=== PATIENT | female | born 1995 | race Two or more races ===

== ENCOUNTER 2022-01-09 14:55 | Emergency (ER) | payer OTHER ==
[~2022-01-09] VITALS: Ht 157.5 cm; Wt 72.6 kg
[2022-01-09] MEDS ORDERED: FOLIC ACID20 MG (15:48)
== END 2022-01-09 18:06 | disposition home or self-care (01) ==
LOC: ER 14:55
DX: O20.9 Hemorrhage in early pregnancy, unspecified (principal); Z3A.01 Less than 8 weeks gestation of pregnancy

== ENCOUNTER 2022-05-26 05:25 | Emergency (ER) | payer OTHER ==
[~2022-05-26] VITALS: Ht 157.5 cm; Wt 80.7 kg
[~2022-05-26 05:25] MED LIST: FOLIC ACID20 MG
[2022-05-26] MEDS ORDERED: PRENATAL CAPLE1 EAC1 (05:48)
== END 2022-05-26 10:14 | disposition home or self-care (01) ==
LOC: ER 05:25
DX: O98.512 Other viral diseases complicating pregnancy, second trimester (principal); Z3A.26 26 weeks gestation of pregnancy; Z20.822 Contact with and (suspected) exposure to COVID-19

== ENCOUNTER 2022-07-03 03:23 | Outpatient (CLI) | payer OTHER ==
[~2022-07-03 03:23] MED LIST changes: +PRENATAL CAPLE1 EAC1
== END 2022-07-03 13:11 | disposition home or self-care (01) ==
LOC: OBS/DEL 03:23
PROVIDERS: ATTEND Obstetrics & Gynecology
DX: O60.03 Preterm labor without delivery, third trimester (principal); Z3A.30 30 weeks gestation of pregnancy

== ENCOUNTER 2022-08-23 00:56 | Inpatient (IN) | payer OTHER ==
[~2022-08-23] VITALS: Ht 157.5 cm; Wt 86.6 kg
== END 2022-08-27 13:10 | disposition home or self-care (01) | DRG 787 ==
LOC: OBS/DEL 00:56 → OB/GYN 08-24 01:00 → OBS/DEL 08-24 01:00 → LDR 08-24 01:00 → OB/GYN 08-24 13:38 → LDR 08-24 14:44 → O/R 08-24 16:52 → LDR 08-24 17:08 → O/R 08-24 22:18 → OB/GYN 08-25 08:46
PROVIDERS: ADMIT Obstetrics & Gynecology; ATTEND Obstetrics & Gynecology
PROC: 4A1HXCZ Monitoring of Products of Conception, Cardiac Rate, External Approach (ICD-10-PCS; 2022-08-24)
PROC: BY4FZZZ Ultrasonography of Third Trimester, Single Fetus (ICD-10-PCS; 2022-08-24)
PROC: 10D00Z1 Extraction of Products of Conception, Low, Open Approach (ICD-10-PCS; principal; 2022-08-24 16:00)
PROC: 3E0F7GC Introduction of Other Therapeutic Substance into Respiratory Tract, Via Natural or Artificial Opening (ICD-10-PCS; 2022-08-25)
DX: O36.8130 Decreased fetal movements, third trimester, not applicable or unspecified (principal); O41.03X0 Oligohydramnios, third trimester, not applicable or unspecified; O99.354 Diseases of the nervous system complicating childbirth; O74.8 Other complications of anesthesia during labor and delivery; G83.89 Other specified paralytic syndromes; O26.843 Uterine size-date discrepancy, third trimester; O36.8310 Maternal care for abnormalities of the fetal heart rate or rhythm, first trimester, not applicable or unspecified; Z3A.37 37 weeks gestation of pregnancy; Z37.0 Single live birth; Z20.822 Contact with and (suspected) exposure to COVID-19